=== PATIENT | female | born 1945 | race Caucasian/White ===

== ENCOUNTER → 2016-08-28 | Outpatient (CLI) | payer MEDICARE ==
--- NOTE | 2016-09-01 12:11 | RADIOLOGY REPORT PS360 ---
DIG MAMM-SCREEN KAYLEN W/CAD CAD Screening COMPARISON: Digital mammograms 05/30/2013 and additional views of both breast 06/27/2013 INDICATION: There is no personal or family history of breast cancer TECHNIQUE: Standard CC and MLO images were obtained. R2 CAD reviewed. FINDINGS: Moderate diffuse fibroglandular densities are seen in the central portions of both breasts. There are couple benign-appearing calcifications left breast and a single benign-appearing calcification right breast. There is no suspicious lesion and no suspicious microcalcifications. There are small nodes in both axilla. IMPRESSION: Moderate breast density with no suspicious lesion seen recommend yearly follow-up BI-RADS CATEGORY: 2_Benign RECOMMENDED FOLLOWUP: 12M 12 MONTH FOLLOW-UP (A letter has been sent to the patient regarding results of the study.)
== END ==
LOC: RAD 10:39
DX: Z12.31 Encounter for screening mammogram for malignant neoplasm of breast (principal)
CPT/HCPCS: G0202